=== PATIENT | female | born 1990 | race Caucasian/White ===

== ENCOUNTER 2023-03-22 12:41 | Emergency (ER) | payer BC ==
[2023-03-22 12:50] VITALS: BP 112/66; PULSE 89; RESP 17; TEMP 99.6; BMI 23.3
[2023-03-22] MEDS ORDERED: ACETAMINOPHEN 500 MG TABLET (FP) PO ONE (14:11)
[2023-03-22] MEDS ORDERED: ACETAMINOPHEN 500 MG TABLET (FP) ONE (14:56)
[2023-03-22] MEDS ORDERED: KETOROLAC TROMETHAMINE 30 MG/1 ML VIAL IM ONE (15:29)
[2023-03-22] MEDS ORDERED: LIDOCAINE 5% TOPICAL PATCH ONE (15:34)
[2023-03-22] MEDS ORDERED: KETOROLAC TROMETHAMINE 30 MG/1 ML VIAL ONE (15:34)
== END 2023-03-22 16:34 | disposition home or self-care (01) ==
LOC: JERFT 12:41
PROC: 3E0233Z Introduction of Anti-inflammatory into Muscle, Percutaneous Approach (ICD-10-PCS; principal; 2023-03-22)
DX: M75.51 Bursitis of right shoulder (principal); M25.511 Pain in right shoulder; M25.512 Pain in left shoulder
CPT/HCPCS: 73030-TC-RT-FY; 73060-TC-RT-FY; 99284-25

== ENCOUNTER 2025-01-14 15:08 | Emergency (ER) | payer OTHER ==
[2025-01-14 15:39] VITALS: BP 109/71; PULSE 72; RESP 18; TEMP 98.1; BMI 24.4
[2025-01-14] MEDS ORDERED: CycloBENZAprine HCL 5 MG TABLET ONE (15:40)
[2025-01-14] MEDS ORDERED: LIDOCAINE 5% TOPICAL PATCH ONE (15:46)
[2025-01-14] MEDS: LIDOCAINE 5% TOPICAL PATCH TP ONE (15:55)
[2025-01-14] MEDS: CycloBENZAprine HCL 10 MG TABLET (FP) PO ONE (15:55)
[2025-01-14] MEDS ORDERED: KETOROLAC TROMETHAMINE 15 MG/ML VIAL ONE (16:03)
[2025-01-14] MEDS: KETOROLAC TROMETHAMINE 15 MG/ML VIAL IM ONE (16:07)
[2025-01-14] MEDS ORDERED: LIDOCAINE PATCH REMOVAL MC SCH (22:00)
== END 2025-01-14 16:25 | disposition home or self-care (01) ==
LOC: FER 15:08
PROC: 3E0233Z Introduction of Anti-inflammatory into Muscle, Percutaneous Approach (ICD-10-PCS; principal; 2025-01-14)
DX: M54.2 Cervicalgia (principal); R20.2 Paresthesia of skin; V49.40XA Driver injured in collision with unspecified motor vehicles in traffic accident, initial encounter; Y92.410 Unspecified street and highway as the place of occurrence of the external cause
CPT/HCPCS: 71046-TC-FY; 72050-TC-FY; 84703; 99284-25